=== PATIENT | male | born 1995 | race Caucasian/White ===

== ENCOUNTER 2018-03-03 09:08 | Emergency (ER) | payer OTHER ==
[~2018-03-03] VITALS: Ht 180.3 cm; Wt 104.3 kg
[~2018-03-03 09:08] MED LIST: ALBU90OI INH; AMOX500 PO; AMOX50SU PO; Crutch1 EACH MISC; HYDACE5 PO; IBUP100S PO
[2018-03-03] MEDS ORDERED: OMEPRAZOLE MAGN20 MG PO (10:54)
== END 2018-03-03 11:56 | disposition home or self-care (01) ==
LOC: ER 09:08
DX: R10.13 Epigastric pain (principal)
CPT/HCPCS: 99283